=== PATIENT | male | born 1955 ===

== ENCOUNTER 2021-11-07 15:23 | Emergency (ER) | payer MEDICAID | END 2021-11-07 16:13 | disposition home or self-care (01) | LOC: DL.ED 15:23 | DX: S01.111A Laceration without foreign body of right eyelid and periocular area, initial encounter (principal); Z88.5 Allergy status to narcotic agent; Z79.82 Long term (current) use of aspirin; Z79.02 Long term (current) use of antithrombotics/antiplatelets; W22.09XA Striking against other stationary object, initial encounter | CPT/HCPCS: 99282; 99283 ==

== ENCOUNTER 2022-02-16 19:04 | Emergency (ER) | payer MEDICARE, MEDICAID | END 2022-02-16 19:40 | disposition left against medical advice (07) | LOC: DL.ED 19:04 | DX: Z53.21 Procedure and treatment not carried out due to patient leaving prior to being seen by health care provider (principal) ==

== ENCOUNTER 2022-02-17 10:47 | Emergency (ER) | payer MEDICARE, MEDICAID ==
[2022-02-17 12:16] LABS: PTT,PARTIAL THROMBOPLSTIN TIME 22.1 SEC (22.0-34.0)
[2022-02-17 12:22] LABS: ANION GAP 12.4 mEq/L (7-13); CHLORIDE,CL 111 mmol/L (98-107); SODIUM,NA 150 mmol/L (136-145)
[2022-02-17 12:23] LABS: ESTIMATED GFR 86 mL/min (>=60)
[2022-02-17 12:46] LABS: METHAMPHETAMINES,URINE NEGATIVE (NEGATIVE)
[2022-02-17 12:47] LABS: AMPHETAMINES,URINE NEGATIVE (NEGATIVE); BARBITURATES,URINE NEGATIVE (NEGATIVE); BENZODIAZEPINE,URINE NEGATIVE (NEGATIVE); MDMA (ECSTASY), URINE NEGATIVE (NEGATIVE); METHADONE,URINE NEGATIVE (NEGATIVE); OPIATES,URINE NEGATIVE (NEGATIVE); OXYCODONE,URINE NEGATIVE (NEGATIVE); PHENCYCLIDINE,URINE NEGATIVE (NEGATIVE); TCA,URINE NEGATIVE (NEGATIVE)
== END 2022-02-17 13:25 | disposition home or self-care (01) ==
LOC: DL.ED 10:47
DX: F10.920 Alcohol use, unspecified with intoxication, uncomplicated (principal); I25.2 Old myocardial infarction; Z79.899 Other long term (current) drug therapy; Z79.82 Long term (current) use of aspirin; Z88.5 Allergy status to narcotic agent
CPT/HCPCS: 36415; 70450; 72125; 80053; 80305-QW; 80307; 81001; 83605; 84484; 85025; 85610; 85730; 86140; 99284

== ENCOUNTER 2022-02-20 10:09 | Emergency (ER) | payer MEDICARE, MEDICAID ==
[2022-02-20] MEDS ORDERED: Gentamicin 0.3% Ophth Soln 5 ML Bottle ONE (10:51)
[2022-02-20] MEDS ORDERED: Gentamicin 0.3% Ophth Soln 5 ML Bottle EYEBOTH SCH (14:00)
== END 2022-02-20 10:59 | disposition home or self-care (01) ==
LOC: DL.ED 10:09
DX: H10.33 Unspecified acute conjunctivitis, bilateral (principal); S60.511A Abrasion of right hand, initial encounter; L08.9 Local infection of the skin and subcutaneous tissue, unspecified; F10.10 Alcohol abuse, uncomplicated; I10 Essential (primary) hypertension; I25.10 Atherosclerotic heart disease of native coronary artery without angina pectoris; Z88.5 Allergy status to narcotic agent; I25.2 Old myocardial infarction; Z79.82 Long term (current) use of aspirin; Z79.02 Long term (current) use of antithrombotics/antiplatelets; Z79.899 Other long term (current) drug therapy
CPT/HCPCS: 99283; A9270

== ENCOUNTER 2022-02-22 16:53 | Emergency (ER) | payer MEDICARE, MEDICAID ==
[2022-02-22] MEDS ORDERED: Ondansetron 4 MG/2 ML SDV IVPUSH ONE (17:26)
[2022-02-22] MEDS ORDERED: MVI, Adult with Vitamin K 10 ML, Folic Acid 1 MG, Thiamine 100 MG in Lactated Ringers 1... IV ONE ×4 (17:26)
[2022-02-22] MEDS ORDERED: LORazepam 2 MG/ML SDV IVPUSH ONE (17:27)
[2022-02-22 18:04] LABS: ANION GAP 14.5 mEq/L (7-13)
== END 2022-02-22 18:52 | disposition home or self-care (01) ==
LOC: DL.ED 16:53
DX: F10.930 Alcohol use, unspecified with withdrawal, uncomplicated (principal); I25.2 Old myocardial infarction; F17.210 Nicotine dependence, cigarettes, uncomplicated; Z88.5 Allergy status to narcotic agent; Z79.899 Other long term (current) drug therapy; Z79.82 Long term (current) use of aspirin
CPT/HCPCS: 36415; 80053; 80307; 85025; 96365; 96375; 99284; J2060; J2405; J3411; J7120; J3490

== ENCOUNTER 2022-04-03 19:26 | Emergency (ER) | payer MEDICARE, MEDICAID ==
[2022-04-03 20:56] LABS: ANION GAP 15.6 mEq/L (7-13)
== END 2022-04-03 21:12 | disposition left against medical advice (07) ==
LOC: DL.ED 19:26
DX: Z53.21 Procedure and treatment not carried out due to patient leaving prior to being seen by health care provider (principal)
CPT/HCPCS: 36415; 80053; 80143; 80179; 80307; 82150; 83690; 85025

== ENCOUNTER 2022-04-10 22:49 | Emergency (ER) | payer MEDICARE, MEDICAID ==
[2022-04-10] MEDS ORDERED: Aspirin 81 MG Tab.Chew PO ONE (23:07)
[2022-04-10 23:45] LABS: ANION GAP 17.6 mEq/L (7-13)
[2022-04-10] MEDS ORDERED: Iopamidol 755 Mg/ML 100 ML Bottle IVPUSH ONE (23:51)
== END 2022-04-11 01:07 | disposition left against medical advice (07) ==
LOC: DL.ED 22:49
DX: F10.10 Alcohol abuse, uncomplicated (principal); Y90.8 Blood alcohol level of 240 mg/100 ml or more; R07.9 Chest pain, unspecified; E78.00 Pure hypercholesterolemia, unspecified; Z79.899 Other long term (current) drug therapy; Z88.5 Allergy status to narcotic agent
CPT/HCPCS: 36415; 71045; 71260; 80053; 80143; 80179; 80307; 82140; 82150; 83605; 83690; 83735; 84484; 85025; 85379; 87040; 93005; 99285; A9270; Q9967; U0002; 93010; 99284

== ENCOUNTER 2022-04-13 09:04 | Emergency (ER) | payer MEDICARE, MEDICAID ==
[2022-04-13] MEDS ORDERED: Gentamicin 0.3% Ophth Soln 5 ML Bottle EYEBOTH ONE (09:22)
[2022-04-13 10:03] LABS: ANION GAP 13.5 mEq/L (7-13)
[2022-04-13 10:14] LABS: CORONAVIRUS COVID-19 NAA NEGATIVE (NEGATIVE); RESPIRATORY SYNCYTIAL VIR NAA NEGATIVE (NEGATIVE)
== END 2022-04-13 11:04 | disposition other institution (70) ==
LOC: DL.ED 09:04
DX: F10.920 Alcohol use, unspecified with intoxication, uncomplicated (principal); I25.2 Old myocardial infarction; F17.210 Nicotine dependence, cigarettes, uncomplicated; Z20.822 Contact with and (suspected) exposure to COVID-19; Z88.5 Allergy status to narcotic agent; Z79.82 Long term (current) use of aspirin; Z79.899 Other long term (current) drug therapy
CPT/HCPCS: 0241U; 36415; 80053; 80143; 80179; 80307; 83735; 85025; 85610; 99284; A9270

== ENCOUNTER 2022-09-04 11:00 | Emergency (ER) | payer MEDICARE, MEDICAID ==
[2022-09-04] MEDS ORDERED: Sodium Chloride 0.9% 10 ML Syringe FLUSH PRN (13:05)
[2022-09-04] MEDS ORDERED: MVI, Adult with Vitamin K 10 ML, Folic Acid 1 MG, Thiamine 100 MG in Lactated Ringers 1... IV ONE ×4 (13:05)
[2022-09-04] MEDS ORDERED: Ondansetron 4 MG/2 ML SDV IVPUSH ONE (13:06)
[2022-09-04] MEDS ORDERED: LORazepam 2 MG/ML SDV IVPUSH ONE ×2 (13:06→15:46)
[2022-09-04 13:44] LABS: PTT,PARTIAL THROMBOPLSTIN TIME 23.2 SEC (22.0-34.0)
[2022-09-04 14:19] LABS: ANION GAP 17.8 mEq/L (7-13); CHLORIDE,CL 93 mmol/L (98-107); SODIUM,NA 136 mmol/L (136-145)
[2022-09-04 14:20] LABS: ESTIMATED GFR 95 mL/min (>=60)
== END 2022-09-04 16:12 ==
LOC: DL.ED 11:00
DX: F10.930 Alcohol use, unspecified with withdrawal, uncomplicated (principal); E78.00 Pure hypercholesterolemia, unspecified; I25.2 Old myocardial infarction; Z79.82 Long term (current) use of aspirin; Z79.02 Long term (current) use of antithrombotics/antiplatelets; Z88.5 Allergy status to narcotic agent
CPT/HCPCS: 36415; 71045; 80053; 80307; 82150; 83605; 83690; 83735; 83880; 84145; 84484; 85025; 85610; 85730; 86140; 93005; 93010; 96365; 96375; 96376; 99284; 99285-25; A9270-GY; J2060; J2405; J3411; J3490; J7120

== ENCOUNTER 2022-09-13 15:47 | Inpatient (IN) | payer MEDICARE, MEDICAID ==
[2022-09-13] MEDS ORDERED: LORazepam 2 MG/ML SDV IVPUSH ONE (16:09)
[2022-09-13] MEDS ORDERED: MVI, Adult with Vitamin K 10 ML, Thiamine 100 MG, Folic Acid 1 MG in Lactated Ringers 1... IV ONE ×4 (16:09)
[2022-09-13] MEDS ORDERED: Nicotine 21 MG/24 Hr Patch TRDERM ONE (16:10)
[2022-09-13] MEDS: Sodium Chloride 0.9% 10 ML Syringe FLUSH PRN (16:19)
[2022-09-13] MEDS ORDERED: Gentamicin 0.3% Ophth Soln 5 ML Bottle EYEBOTH ONE (16:24)
[2022-09-13 16:28] LABS: ANION GAP 13.2 mEq/L (7-13)
[2022-09-13 16:44] LABS: PTT,PARTIAL THROMBOPLSTIN TIME 22.1 SEC (22.0-34.0)
[2022-09-13] MEDS ORDERED: Albuterol/Ipratropium 3.0-0.5 MG/3 ML Neb Soln NEB PRN (17:39)
[2022-09-13] MEDS ORDERED: Morphine 2 MG/ML SYRINGE IVPUSH PRN (17:39)
[2022-09-13] MEDS ORDERED: Ondansetron 4 MG/2 ML SDV IVPUSH PRN (17:39)
[2022-09-13] MEDS ORDERED: Naproxen 250 MG Tab PO PRN (17:45)
[2022-09-13] MEDS ORDERED: hydrALAZINE 20 MG/ML SDV IVPUSH PRN (17:46)
[2022-09-13] MEDS ORDERED: MVI, Adult with Vitamin K 10 ML, Folic Acid 1 MG, Thiamine 100 MG in Lactated Ringers 1... IV ONE ×4 (17:50)
[2022-09-13] MEDS ORDERED: Nicotine 14 MG/24 Hr Patch TRDERM SCH (18:00)
[2022-09-13] MEDS ORDERED: Ciprofloxacin 0.3% Ophth Soln 5 ML Bottle EYEBOTH SCH (18:00)
[2022-09-13] MEDS ORDERED: Folic Acid 1 MG Tab PO SCH (18:00)
[2022-09-13] MEDS ORDERED: LORazepam 2 MG/ML SDV IVPUSH PRN (18:00)
[2022-09-13] MEDS ORDERED: Tamsulosin 0.4 MG Cap.ER PO SCH (18:00)
[2022-09-13] MEDS: LORazepam 2 MG/ML SDV IVPUSH PRN (18:30)
[2022-09-13] MEDS: Lactated Ringers 1,000 ML IV SCH (18:31)
[2022-09-13] MEDS: Isosorbide Mononitrate 30 MG Tab.ER PO SCH (18:31)
[2022-09-13] MEDS: Multivitamin Tab PO SCH (18:40)
[2022-09-13] MEDS: Thiamine 200 MG/2 ML MDV IM SCH (18:41)
[2022-09-13] MEDS: Carvedilol 3.125 MG Tab PO SCH (18:46)
[2022-09-13] MEDS ORDERED: DOXEPIN HCL 6 MG PO SCH (21:00)
[2022-09-13] MEDS: chlordiazePOXIDE 10 MG Cap PO SCH (21:55)
[2022-09-13] MEDS: Gentamicin 0.3% Ophth Soln 5 ML Bottle EYEBOTH SCH (21:55)
[2022-09-13] MEDS: Tamsulosin 0.4 MG Cap.ER PO SCH (21:55)
[2022-09-13] MEDS: Pantoprazole 40 MG Tab.CR PO SCH (21:55)
[2022-09-13] MEDS: traMADol 50 MG Tab PO PRN (22:06)
[2022-09-13] MEDS: Melatonin 3 MG Tab PO PRN (22:08)
[2022-09-13 22:50] LABS: AMPHETAMINES,URINE NEGATIVE (NEGATIVE); BARBITURATES,URINE NEGATIVE (NEGATIVE); BENZODIAZEPINE,URINE POSITIVE (NEGATIVE); MDMA (ECSTASY), URINE NEGATIVE (NEGATIVE); METHADONE,URINE NEGATIVE (NEGATIVE); METHAMPHETAMINES,URINE NEGATIVE (NEGATIVE); OPIATES,URINE NEGATIVE (NEGATIVE); OXYCODONE,URINE NEGATIVE (NEGATIVE); PHENCYCLIDINE,URINE NEGATIVE (NEGATIVE); TCA,URINE NEGATIVE (NEGATIVE)
[2022-09-14] MEDS: Lactated Ringers 1,000 ML IV SCH (01:55)
[2022-09-14] MEDS: chlordiazePOXIDE 10 MG Cap PO SCH ×3 (05:36→22:21)
[2022-09-14] MEDS: LORazepam 2 MG/ML SDV IVPUSH PRN (05:37)
[2022-09-14] MEDS: Sodium Chloride 0.9% 10 ML Syringe FLUSH PRN (05:38)
[2022-09-14 06:48] LABS: ANION GAP 9.9 mEq/L (7-13)
[2022-09-14] MEDS: Carvedilol 3.125 MG Tab PO SCH ×2 (08:18→17:43)
[2022-09-14] MEDS ORDERED: MVI, Adult with Vitamin K 10 ML, Folic Acid 1 MG, Thiamine 100 MG in Lactated Ringers 1... IV ONE ×4 (09:00)
[2022-09-14] MEDS ORDERED: Remove Patch NICOTINE PATCH TRDERM SCH (09:00)
[2022-09-14] MEDS: Enoxaparin 40 MG/0.4 ML Syringe SUBCUT SCH (09:27)
[2022-09-14] MEDS: Thiamine 200 MG/2 ML MDV IM SCH (09:31)
[2022-09-14] MEDS: Nicotine 14 MG/24 Hr Patch TRDERM SCH (09:36)
[2022-09-14] MEDS: Gentamicin 0.3% Ophth Soln 5 ML Bottle EYEBOTH SCH ×3 (09:40→20:21)
[2022-09-14] MEDS: Multivitamin Tab PO SCH (09:42)
[2022-09-14] MEDS: Clopidogrel 75 MG Tab PO SCH (09:42)
[2022-09-14] MEDS: Folic Acid 1 MG Tab PO SCH (09:43)
[2022-09-14] MEDS: Isosorbide Mononitrate 30 MG Tab.ER PO SCH (09:44)
[2022-09-14] MEDS: Aspirin 81 MG Tab.EC PO SCH (09:44)
[2022-09-14] MEDS: Remove Patch NICOTINE PATCH TRDERM SCH (09:45)
[2022-09-14] MEDS ORDERED: LORazepam 1 MG Tab PO PRN (09:59)
[2022-09-14] MEDS: LORazepam 0.5 MG Tab PO PRN (11:44)
[2022-09-14] MEDS: Menthol 10%/Methyl Salicylate 15% 85 GM Tube TOP SCH ×2 (11:46→20:20)
[2022-09-14] MEDS: LORazepam 2 MG/ML SDV IV PRN ×3 (13:46→22:19)
[2022-09-14] MEDS: traMADol 50 MG Tab PO PRN (20:17)
[2022-09-14] MEDS: Tamsulosin 0.4 MG Cap.ER PO SCH (20:19)
[2022-09-14] MEDS: Pantoprazole 40 MG Tab.CR PO SCH (20:20)
[2022-09-15] MEDS: LORazepam 2 MG/ML SDV IV PRN (02:15)
[2022-09-15] MEDS: LORazepam 0.5 MG Tab PO PRN ×2 (06:01→10:28)
[2022-09-15] MEDS: chlordiazePOXIDE 10 MG Cap PO SCH ×3 (06:01→21:51)
[2022-09-15 06:05] LABS: ANION GAP 12.9 mEq/L (7-13)
[2022-09-15] MEDS: Nicotine 14 MG/24 Hr Patch TRDERM SCH (08:51)
[2022-09-15] MEDS: Enoxaparin 40 MG/0.4 ML Syringe SUBCUT SCH (08:51)
[2022-09-15] MEDS: Isosorbide Mononitrate 30 MG Tab.ER PO SCH (08:52)
[2022-09-15] MEDS: Multivitamin Tab PO SCH (08:52)
[2022-09-15] MEDS: Carvedilol 3.125 MG Tab PO SCH ×2 (08:52→18:47)
[2022-09-15] MEDS: Folic Acid 1 MG Tab PO SCH (08:52)
[2022-09-15] MEDS: Clopidogrel 75 MG Tab PO SCH (08:52)
[2022-09-15] MEDS: Aspirin 81 MG Tab.EC PO SCH (08:52)
[2022-09-15] MEDS: Thiamine 200 MG/2 ML MDV IM SCH (08:53)
[2022-09-15] MEDS: Gentamicin 0.3% Ophth Soln 5 ML Bottle EYEBOTH SCH ×3 (08:54→21:53)
[2022-09-15] MEDS: Menthol 10%/Methyl Salicylate 15% 85 GM Tube TOP SCH ×2 (09:29→21:52)
[2022-09-15] MEDS: Remove Patch NICOTINE PATCH TRDERM SCH (12:41)
[2022-09-15] MEDS: traMADol 50 MG Tab PO PRN ×2 (15:33→23:25)
[2022-09-15] MEDS: Pantoprazole 40 MG Tab.CR PO SCH (21:52)
[2022-09-15] MEDS: Tamsulosin 0.4 MG Cap.ER PO SCH (21:52)
[2022-09-15] MEDS: Melatonin 3 MG Tab PO PRN (21:52)
[2022-09-16] MEDS: chlordiazePOXIDE 10 MG Cap PO SCH ×3 (05:54→21:29)
[2022-09-16 06:48] LABS: ANION GAP 10.9 mEq/L (7-13)
[2022-09-16] MEDS: Remove Patch NICOTINE PATCH TRDERM SCH (08:02)
[2022-09-16] MEDS: Nicotine 14 MG/24 Hr Patch TRDERM SCH (08:02)
[2022-09-16] MEDS: Thiamine 200 MG/2 ML MDV IM SCH (08:03)
[2022-09-16] MEDS: Isosorbide Mononitrate 30 MG Tab.ER PO SCH (08:04)
[2022-09-16] MEDS: Enoxaparin 40 MG/0.4 ML Syringe SUBCUT SCH (08:04)
[2022-09-16] MEDS: Carvedilol 3.125 MG Tab PO SCH ×2 (08:04→17:14)
[2022-09-16] MEDS: Aspirin 81 MG Tab.EC PO SCH (08:04)
[2022-09-16] MEDS: Multivitamin Tab PO SCH (08:05)
[2022-09-16] MEDS: Gentamicin 0.3% Ophth Soln 5 ML Bottle EYEBOTH SCH ×3 (08:05→21:31)
[2022-09-16] MEDS: Folic Acid 1 MG Tab PO SCH (08:05)
[2022-09-16] MEDS: Clopidogrel 75 MG Tab PO SCH (08:05)
[2022-09-16] MEDS: Menthol 10%/Methyl Salicylate 15% 85 GM Tube TOP SCH (11:01)
[2022-09-16] MEDS: traMADol 50 MG Tab PO PRN (15:21)
[2022-09-16] MEDS ORDERED: Menthol 10%/Methyl Salicylate 15% 85 GM Tube TOP PRN (18:26)
[2022-09-16] MEDS: Tamsulosin 0.4 MG Cap.ER PO SCH (21:28)
[2022-09-16] MEDS: Acetaminophen/HYDROcodone 325-5 MG Tab PO PRN (21:29)
[2022-09-16] MEDS: Melatonin 3 MG Tab PO PRN (21:29)
[2022-09-16] MEDS: Pantoprazole 40 MG Tab.CR PO SCH (21:29)
[2022-09-17] MEDS: chlordiazePOXIDE 10 MG Cap PO SCH ×3 (05:29→21:43)
[2022-09-17] MEDS: Nicotine 14 MG/24 Hr Patch TRDERM SCH (09:20)
[2022-09-17] MEDS: Enoxaparin 40 MG/0.4 ML Syringe SUBCUT SCH (09:21)
[2022-09-17] MEDS: Thiamine 200 MG/2 ML MDV IM SCH (09:21)
[2022-09-17] MEDS: Isosorbide Mononitrate 30 MG Tab.ER PO SCH (09:26)
[2022-09-17] MEDS: Remove Patch NICOTINE PATCH TRDERM SCH (09:27)
[2022-09-17] MEDS: Carvedilol 3.125 MG Tab PO SCH ×2 (09:27→17:58)
[2022-09-17] MEDS: Aspirin 81 MG Tab.EC PO SCH (09:27)
[2022-09-17] MEDS: Multivitamin Tab PO SCH (09:27)
[2022-09-17] MEDS: Clopidogrel 75 MG Tab PO SCH (09:27)
[2022-09-17] MEDS: Gentamicin 0.3% Ophth Soln 5 ML Bottle EYEBOTH SCH ×3 (09:28→21:46)
[2022-09-17] MEDS: Acetaminophen/HYDROcodone 325-5 MG Tab PO PRN ×3 (09:31→21:43)
[2022-09-17] MEDS: Pantoprazole 40 MG Tab.CR PO SCH (21:43)
[2022-09-17] MEDS: Gabapentin 100 MG Cap PO SCH (21:44)
[2022-09-17] MEDS: Tamsulosin 0.4 MG Cap.ER PO SCH (21:44)
[2022-09-18] MEDS: Gabapentin 100 MG Cap PO SCH ×2 (05:53→14:49)
[2022-09-18] MEDS: chlordiazePOXIDE 10 MG Cap PO SCH ×2 (05:53→14:49)
[2022-09-18] MEDS: Isosorbide Mononitrate 30 MG Tab.ER PO SCH (08:59)
[2022-09-18] MEDS: Thiamine 200 MG/2 ML MDV IM SCH (08:59)
[2022-09-18] MEDS: Multivitamin Tab PO SCH (08:59)
[2022-09-18] MEDS: Carvedilol 3.125 MG Tab PO SCH (09:00)
[2022-09-18] MEDS: Aspirin 81 MG Tab.EC PO SCH (09:00)
[2022-09-18] MEDS: Clopidogrel 75 MG Tab PO SCH (09:00)
[2022-09-18] MEDS: Enoxaparin 40 MG/0.4 ML Syringe SUBCUT SCH (09:00)
[2022-09-18] MEDS: Nicotine 14 MG/24 Hr Patch TRDERM SCH (09:01)
[2022-09-18] MEDS: Acetaminophen/HYDROcodone 325-5 MG Tab PO PRN ×2 (09:03→12:35)
[2022-09-18] MEDS: Gentamicin 0.3% Ophth Soln 5 ML Bottle EYEBOTH SCH ×2 (09:03→14:49)
[2022-09-18] MEDS: Remove Patch NICOTINE PATCH TRDERM SCH (09:06)
== END 2022-09-18 13:00 | disposition home or self-care (01) | DRG 897 ==
LOC: DL.ED 15:47 → DL.MS 17:15
PROVIDERS: ADMIT Internal Medicine; ATTEND Internal Medicine
DX: F10.920 Alcohol use, unspecified with intoxication, uncomplicated (principal); F10.229 Alcohol dependence with intoxication, unspecified; F17.200 Nicotine dependence, unspecified, uncomplicated; Z20.822 Contact with and (suspected) exposure to COVID-19; E78.00 Pure hypercholesterolemia, unspecified; Y90.8 Blood alcohol level of 240 mg/100 ml or more; I10 Essential (primary) hypertension; F17.210 Nicotine dependence, cigarettes, uncomplicated; H10.9 Unspecified conjunctivitis; E86.0 Dehydration; F12.10 Cannabis abuse, uncomplicated; M25.511 Pain in right shoulder; M25.521 Pain in right elbow; Z88.5 Allergy status to narcotic agent; Z79.82 Long term (current) use of aspirin; Z79.899 Other long term (current) drug therapy; I25.2 Old myocardial infarction
CPT/HCPCS: 36415; 73020-RT; 73070-RT; 80053; 80305-QW; 80307; 81003; 82140; 83735; 84100; 85025; 85610; 85730; 96365; 96375; 99283; 99285-25; A9270-GY; J1650; J2060; J3411; J3490; J7120; U0002

== ENCOUNTER 2022-11-22 09:14 | Inpatient (IN) | payer MEDICARE, MEDICAID ==
[2022-11-22] MEDS ORDERED: MVI, Adult with Vitamin K 10 ML, Folic Acid 1 MG, Thiamine 100 MG in Lactated Ringers 1... IV ONE ×4 (09:54)
[2022-11-22 10:20] LABS: ANION GAP 12.8 mEq/L (7-13)
[2022-11-22] MEDS: Sodium Chloride 0.9% 10 ML Syringe FLUSH PRN ×2 (10:23→11:04)
[2022-11-22] MEDS ORDERED: Azithromycin 500 MG in Sodium Chloride 0.9% 250 ML IV ONE (10:38)
[2022-11-22] MEDS ORDERED: cefTRIAXone 2 GM Vial IVPUSH ONE (10:38)
[2022-11-22] MEDS ORDERED: Albuterol/Ipratropium 3.0-0.5 MG/3 ML Neb Soln NEB PRN (11:51)
[2022-11-22] MEDS ORDERED: Ketorolac 30 MG/ML SDV IVPUSH PRN (11:51)
[2022-11-22] MEDS ORDERED: Magnesium Hydroxide 400 MG/5 ML Susp 30 ML Cup PO PRN (11:51)
[2022-11-22] MEDS ORDERED: Polyethylene Glycol 3350 Powder 17 GM Packet PO PRN (11:51)
[2022-11-22] MEDS ORDERED: Ondansetron 4 MG/2 ML SDV IVPUSH PRN (11:51)
[2022-11-22] MEDS ORDERED: HYDROmorphone 0.5 MG/0.5 ML Syringe IVPUSH PRN (11:51)
[2022-11-22] MEDS ORDERED: guaiFENesin/Dextromethorphan 100-10 MG/5 ML Soln 5 ML Cup PO PRN (11:53)
[2022-11-22] MEDS ORDERED: LORazepam 2 MG/ML SDV IV PRN (11:54)
[2022-11-22] MEDS ORDERED: cloNIDine 0.1 MG Tab PO PRN (11:54)
[2022-11-22] MEDS ORDERED: chlordiazePOXIDE 25 MG Cap PO SCH (12:00)
[2022-11-22] MEDS ORDERED: guaiFENesin 600 MG Tab.ER PO ONE (12:30)
[2022-11-22] MEDS: Piperacillin/Tazobactam 3.375 GM in Sodium Chloride 0.9% 100 ML IV SCH ×2 (13:50→18:52)
[2022-11-22] MEDS: Nicotine 14 MG/24 Hr Patch TRDERM SCH (15:42)
[2022-11-22] MEDS: Saccharomyces Boulardii (Probiotic) 250 MG Cap PO SCH (20:37)
[2022-11-22] MEDS: Famotidine 20 MG Tab PO SCH (20:37)
[2022-11-22] MEDS: LORazepam 0.5 MG Tab PO PRN (20:37)
[2022-11-22] MEDS: Topiramate 25 MG Tab PO SCH (20:37)
[2022-11-22] MEDS: guaiFENesin 600 MG Tab.ER PO SCH (20:37)
[2022-11-22] MEDS ORDERED: QUEtiapine 25 MG Tab PO SCH (21:00)
[2022-11-23] MEDS: Piperacillin/Tazobactam 3.375 GM in Sodium Chloride 0.9% 100 ML IV SCH ×4 (02:51→17:50)
[2022-11-23] MEDS: LORazepam 0.5 MG Tab PO PRN ×8 (03:15→22:45)
[2022-11-23 07:06] LABS: ANION GAP 12.8 mEq/L (7-13)
[2022-11-23] MEDS: Nicotine 14 MG/24 Hr Patch TRDERM SCH (08:30)
[2022-11-23] MEDS: Folic Acid 1 MG Tab PO SCH (08:33)
[2022-11-23] MEDS: Topiramate 25 MG Tab PO SCH ×2 (08:33→20:04)
[2022-11-23] MEDS: Famotidine 20 MG Tab PO SCH ×2 (08:33→20:04)
[2022-11-23] MEDS: Thiamine 100 MG Tab PO SCH (08:33)
[2022-11-23] MEDS: Saccharomyces Boulardii (Probiotic) 250 MG Cap PO SCH ×2 (08:33→20:04)
[2022-11-23] MEDS: guaiFENesin 600 MG Tab.ER PO SCH ×2 (08:34→20:06)
[2022-11-23] MEDS: Multivitamin Tab PO SCH (08:34)
[2022-11-23] MEDS: Ibuprofen 600 MG Tab PO PRN ×2 (08:42→18:34)
[2022-11-23] MEDS ORDERED: Magnesium Sulfate/Water 2 GM in Premix Bag 1 BAG IV ONE (09:30)
[2022-11-23] MEDS: QUEtiapine 25 MG Tab PO SCH (20:55)
[2022-11-23] MEDS: Melatonin 3 MG Tab PO SCH (20:55)
[2022-11-24] MEDS: Piperacillin/Tazobactam 3.375 GM in Sodium Chloride 0.9% 100 ML IV SCH ×5 (00:23→23:59)
[2022-11-24] MEDS: LORazepam 0.5 MG Tab PO PRN ×4 (01:10→23:59)
[2022-11-24] MEDS: Sodium Chloride 0.9% 10 ML Syringe FLUSH PRN (05:01)
[2022-11-24 06:38] LABS: ANION GAP 11.2 mEq/L (7-13)
[2022-11-24] MEDS ORDERED: Potassium Chloride 10 MEQ Tab.ER PO ONE (08:30)
[2022-11-24] MEDS: Saccharomyces Boulardii (Probiotic) 250 MG Cap PO SCH ×2 (09:52→20:21)
[2022-11-24] MEDS: Nicotine 14 MG/24 Hr Patch TRDERM SCH (09:52)
[2022-11-24] MEDS: Famotidine 20 MG Tab PO SCH ×2 (09:53→20:21)
[2022-11-24] MEDS: Multivitamin Tab PO SCH (09:53)
[2022-11-24] MEDS: Topiramate 25 MG Tab PO SCH ×2 (09:53→20:21)
[2022-11-24] MEDS: Folic Acid 1 MG Tab PO SCH (09:53)
[2022-11-24] MEDS: Thiamine 100 MG Tab PO SCH (09:53)
[2022-11-24] MEDS: guaiFENesin 600 MG Tab.ER PO SCH ×2 (09:54→20:21)
[2022-11-24] MEDS: Melatonin 3 MG Tab PO SCH (20:20)
[2022-11-24] MEDS: QUEtiapine 25 MG Tab PO SCH (20:20)
[2022-11-25] MEDS: Piperacillin/Tazobactam 3.375 GM in Sodium Chloride 0.9% 100 ML IV SCH (05:27)
[2022-11-25 06:03] LABS: ANION GAP 14.1 mEq/L (7-13)
[2022-11-25] MEDS: Nicotine 14 MG/24 Hr Patch TRDERM SCH ×2 (07:49→08:19)
[2022-11-25] MEDS: guaiFENesin 600 MG Tab.ER PO SCH ×2 (07:49→08:19)
[2022-11-25] MEDS: Famotidine 20 MG Tab PO SCH ×2 (07:50→08:20)
[2022-11-25] MEDS: Thiamine 100 MG Tab PO SCH ×2 (07:50→08:20)
[2022-11-25] MEDS: Saccharomyces Boulardii (Probiotic) 250 MG Cap PO SCH ×2 (07:50→08:19)
[2022-11-25] MEDS: Topiramate 25 MG Tab PO SCH ×2 (07:50→08:20)
[2022-11-25] MEDS: Multivitamin Tab PO SCH ×2 (07:50→08:20)
[2022-11-25] MEDS: Folic Acid 1 MG Tab PO SCH ×2 (07:51→08:19)
== END 2022-11-25 09:45 | disposition home or self-care (01) | DRG 896 ==
LOC: DL.ED 09:14 → UNDOADMIN 11:04 → DL.MS 11:04 → DL.ED 11:36 → UNDODISIN 11-25 09:45
PROVIDERS: ADMIT Internal Medicine; ATTEND Internal Medicine
DX: F10.229 Alcohol dependence with intoxication, unspecified (principal); J69.0 Pneumonitis due to inhalation of food and vomit; E87.1 Hypo-osmolality and hyponatremia; E78.5 Hyperlipidemia, unspecified; I25.10 Atherosclerotic heart disease of native coronary artery without angina pectoris; I50.9 Heart failure, unspecified; I11.0 Hypertensive heart disease with heart failure; H40.9 Unspecified glaucoma; N40.0 Benign prostatic hyperplasia without lower urinary tract symptoms; F15.10 Other stimulant abuse, uncomplicated; F17.210 Nicotine dependence, cigarettes, uncomplicated; Y90.8 Blood alcohol level of 240 mg/100 ml or more; G47.00 Insomnia, unspecified; E83.42 Hypomagnesemia; E87.6 Hypokalemia; E78.00 Pure hypercholesterolemia, unspecified; D69.6 Thrombocytopenia, unspecified; E88.09 Other disorders of plasma-protein metabolism, not elsewhere classified; E87.8 Other disorders of electrolyte and fluid balance, not elsewhere classified; Z79.82 Long term (current) use of aspirin; I25.2 Old myocardial infarction; Z88.5 Allergy status to narcotic agent; Z79.02 Long term (current) use of antithrombotics/antiplatelets; Z95.5 Presence of coronary angioplasty implant and graft; Z79.899 Other long term (current) drug therapy
CPT/HCPCS: 36415; 71045; 80053; 80307; 83605; 83735; 84443; 84484; 85025; 87040; 93005; 93010; 96365; 96375; 99285; 99285-25; A9270-GY; J0456; J0696; J1885; J2060; J2543; J3411; J3475; J3490; J7050; J7120

== ENCOUNTER 2022-12-01 19:01 | Emergency (ER) | payer MEDICARE, MEDICAID | END 2022-12-01 22:30 | disposition left against medical advice (07) | LOC: DL.ED 19:01 | DX: Z53.21 Procedure and treatment not carried out due to patient leaving prior to being seen by health care provider (principal) ==

== ENCOUNTER 2022-12-19 10:40 | Inpatient (IN) | payer MEDICARE, MEDICAID ==
[2022-12-19 11:04] LABS: HEMATOCRIT 38.1 % (40.0-54.0); HEMOGLOBIN 12.9 g/dL (14.0-18.0); MEAN CORPUSCULAR HEMOGLOBIN 34.4 pg (27.0-34.0); MEAN CORPUSCULAR HGB CONC 33.9 g/dL (33.0-35.0); MEAN CORPUSCULAR VOLUME 101.6 fL (80-100); PLATELET COUNT,PLT 239 10^3/uL (150-450); RED BLOOD CELL COUNT 3.75 10^6/uL (4.6-6.2); WHITE BLOOD CELL COUNT,WBC 22.1 10^3/uL (5.0-10.0)
[2022-12-19 11:10] LABS: BASOPHILS PERCENT AUTO 0.1 % (0.0-1.0); LYMPHOCYTES PERCENT AUTO 10.9 % (20.5-50.1); MONOCYTES PERCENT AUTO 9.9 % (2-8); NEUTROPHILS PERCENT AUTO 79.1 % (42.2-75.2)
[2022-12-19] MEDS ORDERED: Sodium Chloride 0.9% 1,000 ML IV ONE ×2 (11:15→11:43)
[2022-12-19 11:18] LABS: PROTHROMBIN TIME 10.1 SEC (9.0-12.0)
[2022-12-19] MEDS: Sodium Chloride 0.9% 10 ML Syringe FLUSH PRN (11:20)
[2022-12-19 11:29] LABS: LACTIC ACID 5.3 mmol/L (0.4-2.0)
[2022-12-19 11:32] LABS: ALANINE AMINOTRANSFERASE,ALT 26 U/L (16-63); ALBUMIN 2.8 g/dL (3.4-5.0); ALKALINE PHOSPHATASE 100 U/L (46-116); ANION GAP 12.8 mEq/L (7-13); ASPARTATE AMNIOTRANSFERASE,AST 25 U/L (15-37); BILIRUBIN TOTAL 0.9 mg/dL (0.2-1.0); BLOOD UREA NITROGEN,BUN 13 mg/dL (7-18); BUN/CREATININE RATIO 7.6 (No establ ref range); C-REACTIVE PROTEIN 1.2 mg/dL (0.0-0.9); CALCIUM 8.1 mg/dL (8.5-10.1); CARBON DIOXIDE,CO2 30 mmol/L (21-32); CHLORIDE,CL 99 mmol/L (98-107); CREATININE 1.71 mg/dL (0.70-1.30); GLUCOSE RANDOM 279 mg/dL (70-99); MAGNESIUM 1.4 mg/dL (1.8-2.4); POTASSIUM,K 4.8 mmol/L (3.5-5.1); PROTEIN TOTAL,TP 6.5 g/dL (6.4-8.2); SODIUM,NA 137 mmol/L (136-145); TSH ULTRASENSITIVE 1.09 uIU/mL (0.36-3.74)
[2022-12-19 11:34] LABS: A/G RATIO 0.76; ESTIMATED GFR 43 mL/min (>=60)
[2022-12-19 11:52] LABS: BAND PERCENT MAN 1 %; LYMPHOCYTES PERCENT MAN 7 % (20-50); MONOCYTES PERCENT MAN 5 % (2-8); SEG NEUTROPHILS PERCENT MAN 87 % (42-75)
[2022-12-19] MEDS ORDERED: Magnesium Sulfate/Water 2 GM in Premix Bag 1 BAG IV ONE (11:53)
[2022-12-19] MEDS ORDERED: Ondansetron 4 MG/2 ML SDV IVPUSH ONE (12:24)
[2022-12-19] MEDS ORDERED: HYDROmorphone 0.5 MG/0.5 ML Syringe IVPUSH ONE ×2 (12:24→13:03)
[2022-12-19] MEDS ORDERED: Acetaminophen 500 MG Tab PO ONE (13:01)
[2022-12-19 13:25] LABS: APPEARANCE,URINE CLEAR (CLEAR); BILIRUBIN,URINE SMALL (NEGATIVE); COLOR,URINE YELLOW (YELLOW); GLUCOSE,URINE 500 (NEGATIVE); KETONES,URINE TRACE (NEGATIVE); LEUKOCYTE ESTERASE,URINE NEGATIVE (NEGATIVE); NITRITE,URINE NEGATIVE (NEGATIVE); OCCULT BLOOD,URINE NEGATIVE (NEGATIVE); PROTEIN,URINE 100 (NEGATIVE)
[2022-12-19 13:27] LABS: RBC,URINE 0-5 /HPF (0-5); WBC,URINE 0-5 /HPF (0-5/HPF)
[2022-12-19 13:28] LABS: AMORPHOUS SEDIMENT,URINE FEW /HPF (NOT SEEN); AMPHETAMINES,URINE NEGATIVE (NEGATIVE); BACTERIA,URINE MODERATE /HPF (0-FEW/HPF); BARBITURATES,URINE NEGATIVE (NEGATIVE); BENZODIAZEPINE,URINE NEGATIVE (NEGATIVE); EPITHELIAL CELLS,URINE MODERATE /HPF (NOT SEEN); MDMA (ECSTASY), URINE NEGATIVE (NEGATIVE); METHADONE,URINE NEGATIVE (NEGATIVE); METHAMPHETAMINES,URINE NEGATIVE (NEGATIVE); MUCUS,URINE MODERATE /LPF (NOT SEEN); OPIATES,URINE NEGATIVE (NEGATIVE); OXYCODONE,URINE POSITIVE (NEGATIVE); PHENCYCLIDINE,URINE NEGATIVE (NEGATIVE); TCA,URINE NEGATIVE (NEGATIVE)
[2022-12-19] MEDS ORDERED: Albuterol/Ipratropium 3.0-0.5 MG/3 ML Neb Soln NEB PRN (17:01)
[2022-12-19] MEDS ORDERED: Haloperidol Lactate 5 MG/ML SDV IM PRN (17:01)
[2022-12-19] MEDS ORDERED: cloNIDine 0.1 MG Tab PO PRN (17:01)
[2022-12-19] MEDS ORDERED: Ondansetron 4 MG/2 ML SDV IVPUSH PRN (17:01)
[2022-12-19] MEDS ORDERED: HYDROmorphone 0.5 MG/0.5 ML Syringe IVPUSH PRN (17:01)
[2022-12-19] MEDS ORDERED: Magnesium Hydroxide 400 MG/5 ML Susp 30 ML Cup PO PRN (17:01)
[2022-12-19] MEDS ORDERED: Acetaminophen 325 MG Tab PO PRN (17:01)
[2022-12-19] MEDS ORDERED: MVI, Adult with Vitamin K 10 ML, Folic Acid 1 MG, Thiamine 100 MG in Lactated Ringers 1... IV ONE ×4 (17:01)
[2022-12-19] MEDS ORDERED: NALTREXONE MICROSPHERES 380 MG IM SCH (17:15)
[2022-12-19] MEDS: Ketorolac 30 MG/ML SDV IVPUSH PRN (18:11)
[2022-12-19] MEDS ORDERED: Carvedilol 3.125 MG Tab PO SCH (21:00)
[2022-12-19] MEDS: Tamsulosin 0.4 MG Cap.ER PO SCH (22:14)
[2022-12-19] MEDS: atorvaSTATin 20 MG Tab PO SCH (22:14)
[2022-12-19] MEDS: Mirtazapine 15 MG Tab PO SCH (22:15)
[2022-12-19] MEDS: hydrOXYzine HCl 25 MG Tab PO SCH (22:15)
[2022-12-19] MEDS: Melatonin 3 MG Tab PO SCH (22:16)
[2022-12-19] MEDS: Polyvinyl Alcohol 1.4% Ophth Soln 15 ML Bottle EYEBOTH PRN (22:20)
[2022-12-19] MEDS: Latanoprost 0.005% Ophth Soln 2.5 ML Bottle EYEBOTH SCH (22:36)
[2022-12-20] MEDS: Ketorolac 30 MG/ML SDV IVPUSH PRN (03:57)
[2022-12-20] MEDS: Polyvinyl Alcohol 1.4% Ophth Soln 15 ML Bottle EYEBOTH PRN (04:55)
[2022-12-20] MEDS: Pantoprazole 40 MG Tab.CR PO SCH ×2 (04:58→05:13)
[2022-12-20 06:23] LABS: HEMATOCRIT 25.9 % (40.0-54.0); HEMOGLOBIN 8.7 g/dL (14.0-18.0); MEAN CORPUSCULAR HEMOGLOBIN 34.7 pg (27.0-34.0); MEAN CORPUSCULAR HGB CONC 33.6 g/dL (33.0-35.0); MEAN CORPUSCULAR VOLUME 103.2 fL (80-100); PLATELET COUNT,PLT 189 10^3/uL (150-450); RED BLOOD CELL COUNT 2.51 10^6/uL (4.6-6.2); WHITE BLOOD CELL COUNT,WBC 14.5 10^3/uL (5.0-10.0)
[2022-12-20 06:47] LABS: BASOPHILS PERCENT AUTO 0.1 % (0.0-1.0); EOSINOPHILS PERCENT AUTO 0.6 % (1.0-3.0); LYMPHOCYTES PERCENT AUTO 16.9 % (20.5-50.1); MONOCYTES PERCENT AUTO 10.9 % (2-8); NEUTROPHILS PERCENT AUTO 71.5 % (42.2-75.2)
[2022-12-20 06:51] LABS: A/G RATIO 0.75; ALBUMIN 2.1 g/dL (3.4-5.0); ANION GAP 10.8 mEq/L (7-13); BILIRUBIN TOTAL 0.7 mg/dL (0.2-1.0); BUN/CREATININE RATIO 13.4 (No establ ref range); CALCIUM 7.8 mg/dL (8.5-10.1); CREATININE 0.97 mg/dL (0.70-1.30); EST CRCL DRUG DOSING (CG) 73.9 mL/min; MAGNESIUM 1.8 mg/dL (1.8-2.4); POTASSIUM,K 3.8 mmol/L (3.5-5.1); PROTEIN TOTAL,TP 4.9 g/dL (6.4-8.2)
[2022-12-20 07:23] LABS: BAND PERCENT MAN 4 %; LYMPHOCYTES PERCENT MAN 17 % (20-50); MONOCYTES PERCENT MAN 5 % (2-8); SEG NEUTROPHILS PERCENT MAN 74 % (42-75)
[2022-12-20] MEDS: Thiamine 100 MG Tab PO SCH (08:36)
[2022-12-20] MEDS: Clopidogrel 75 MG Tab PO SCH (08:36)
[2022-12-20] MEDS: Aspirin 81 MG Tab.EC PO SCH (08:37)
[2022-12-20] MEDS: Isosorbide Mononitrate 30 MG Tab.ER PO SCH (08:37)
[2022-12-20] MEDS: Folic Acid 1 MG Tab PO SCH (08:37)
[2022-12-20] MEDS: Carvedilol 3.125 MG Tab PO SCH ×2 (08:43→17:18)
[2022-12-20] MEDS ORDERED: Multivitamin Tab PO SCH (09:00)
[2022-12-20] MEDS: Multivitamin Tab PO SCH (09:44)
[2022-12-20] MEDS: LORazepam 2 MG/ML SDV IV PRN ×3 (09:59→22:16)
[2022-12-20] MEDS: Sodium Chloride 0.9% 10 ML Syringe FLUSH PRN ×4 (19:37→23:11)
[2022-12-20] MEDS: hydrOXYzine HCl 25 MG Tab PO SCH (20:32)
[2022-12-20] MEDS: atorvaSTATin 20 MG Tab PO SCH (20:33)
[2022-12-20] MEDS: Melatonin 3 MG Tab PO SCH (20:33)
[2022-12-20] MEDS: Mirtazapine 15 MG Tab PO SCH (20:33)
[2022-12-20] MEDS: Tamsulosin 0.4 MG Cap.ER PO SCH (20:37)
[2022-12-20] MEDS: Latanoprost 0.005% Ophth Soln 2.5 ML Bottle EYEBOTH SCH (20:38)
[2022-12-21] MEDS: Ketorolac 30 MG/ML SDV IVPUSH PRN (00:12)
[2022-12-21] MEDS: Sodium Chloride 0.9% 10 ML Syringe FLUSH PRN ×5 (00:13→20:08)
[2022-12-21] MEDS: LORazepam 2 MG/ML SDV IV PRN ×5 (00:20→18:41)
[2022-12-21] MEDS: Pantoprazole 40 MG Tab.CR PO SCH (06:00)
[2022-12-21] MEDS: Folic Acid 1 MG Tab PO SCH (09:11)
[2022-12-21] MEDS: Isosorbide Mononitrate 30 MG Tab.ER PO SCH (09:11)
[2022-12-21] MEDS: Aspirin 81 MG Tab.EC PO SCH (09:12)
[2022-12-21] MEDS: Multivitamin Tab PO SCH (09:12)
[2022-12-21] MEDS: Thiamine 100 MG Tab PO SCH (09:12)
[2022-12-21] MEDS: Clopidogrel 75 MG Tab PO SCH (09:12)
[2022-12-21] MEDS: Carvedilol 3.125 MG Tab PO SCH ×2 (10:13→21:38)
[2022-12-21] MEDS: Nicotine 21 MG/24 Hr Patch TRDERM SCH (13:34)
[2022-12-21] MEDS: atorvaSTATin 20 MG Tab PO SCH (20:05)
[2022-12-21] MEDS: LORazepam 0.5 MG Tab PO PRN ×2 (20:06→23:43)
[2022-12-21] MEDS: Tamsulosin 0.4 MG Cap.ER PO SCH (20:07)
[2022-12-21] MEDS: Latanoprost 0.005% Ophth Soln 2.5 ML Bottle EYEBOTH SCH (20:10)
[2022-12-21] MEDS ORDERED: Ziprasidone Mesylate 20 MG Vial IM PRN (20:54)
[2022-12-21] MEDS: Mirtazapine 15 MG Tab PO SCH (21:36)
[2022-12-21] MEDS: hydrOXYzine HCl 25 MG Tab PO SCH (21:36)
[2022-12-21] MEDS: Melatonin 3 MG Tab PO SCH (21:36)
[2022-12-21] MEDS: Check NICOTINE Patch TRDERM SCH (21:42)
[2022-12-22] MEDS: LORazepam 2 MG/ML SDV IV PRN ×2 (00:30→04:40)
[2022-12-22] MEDS: Pantoprazole 40 MG Tab.CR PO SCH (06:21)
[2022-12-22] MEDS: Aspirin 81 MG Tab.EC PO SCH (08:28)
[2022-12-22] MEDS: Folic Acid 1 MG Tab PO SCH (08:28)
[2022-12-22] MEDS: Clopidogrel 75 MG Tab PO SCH (08:29)
[2022-12-22] MEDS: Isosorbide Mononitrate 30 MG Tab.ER PO SCH (08:29)
[2022-12-22] MEDS: Thiamine 100 MG Tab PO SCH (08:29)
[2022-12-22] MEDS: Nicotine 21 MG/24 Hr Patch TRDERM SCH (08:30)
[2022-12-22] MEDS: Carvedilol 3.125 MG Tab PO SCH ×2 (08:30→17:13)
[2022-12-22] MEDS: Multivitamin Tab PO SCH (08:32)
[2022-12-22] MEDS ORDERED: QUEtiapine 25 MG Tab PO ONE (11:00)
[2022-12-22 12:20] LABS: HEMATOCRIT 27.5 % (40.0-54.0); HEMOGLOBIN 9.2 g/dL (14.0-18.0); MEAN CORPUSCULAR HGB CONC 33.5 g/dL (33.0-35.0); MEAN CORPUSCULAR VOLUME 104.6 fL (80-100); PLATELET COUNT,PLT 251 10^3/uL (150-450); RED BLOOD CELL COUNT 2.63 10^6/uL (4.6-6.2); WHITE BLOOD CELL COUNT,WBC 9.3 10^3/uL (5.0-10.0)
[2022-12-22 12:24] LABS: BASOPHILS PERCENT AUTO 0.2 % (0.0-1.0); EOSINOPHILS PERCENT AUTO 2.9 % (1.0-3.0); LYMPHOCYTES PERCENT AUTO 18.6 % (20.5-50.1); MONOCYTES PERCENT AUTO 11.2 % (2-8); NEUTROPHILS PERCENT AUTO 67.1 % (42.2-75.2)
[2022-12-22 12:42] LABS: ALBUMIN 2.3 g/dL (3.4-5.0); BILIRUBIN TOTAL 0.5 mg/dL (0.2-1.0); BUN/CREATININE RATIO 9.3 (No establ ref range); CALCIUM 8.2 mg/dL (8.5-10.1); CREATININE 0.86 mg/dL (0.70-1.30); EST CRCL DRUG DOSING (CG) 83.35 mL/min; MAGNESIUM 1.9 mg/dL (1.8-2.4); PROTEIN TOTAL,TP 5.7 g/dL (6.4-8.2)
[2022-12-22 12:50] LABS: A/G RATIO 0.68
[2022-12-22 13:36] LABS: BAND PERCENT MAN 2 %; EOSINOPHILS PERCENT MAN 1 % (1-3); GIANT PLATELETS OCCASIONAL; LYMPHOCYTES PERCENT MAN 20 % (20-50); MONOCYTES PERCENT MAN 3 % (2-8); SEG NEUTROPHILS PERCENT MAN 74 % (42-75)
[2022-12-22] MEDS: atorvaSTATin 20 MG Tab PO SCH (21:23)
[2022-12-22] MEDS: Melatonin 3 MG Tab PO SCH (21:23)
[2022-12-22] MEDS: Tamsulosin 0.4 MG Cap.ER PO SCH (21:24)
[2022-12-22] MEDS: hydrOXYzine HCl 25 MG Tab PO SCH (21:24)
[2022-12-22] MEDS: Mirtazapine 15 MG Tab PO SCH (21:24)
[2022-12-22] MEDS: QUEtiapine 25 MG Tab PO SCH (21:24)
[2022-12-22] MEDS: Check NICOTINE Patch TRDERM SCH (21:27)
[2022-12-22] MEDS: Latanoprost 0.005% Ophth Soln 2.5 ML Bottle EYEBOTH SCH (21:28)
[2022-12-23] MEDS: Pantoprazole 40 MG Tab.CR PO SCH (06:01)
[2022-12-23] MEDS: Clopidogrel 75 MG Tab PO SCH (08:24)
[2022-12-23] MEDS: QUEtiapine 25 MG Tab PO SCH ×2 (08:25→21:17)
[2022-12-23] MEDS: Isosorbide Mononitrate 30 MG Tab.ER PO SCH (08:25)
[2022-12-23] MEDS: Carvedilol 3.125 MG Tab PO SCH ×2 (08:26→17:12)
[2022-12-23] MEDS: Aspirin 81 MG Tab.EC PO SCH (08:26)
[2022-12-23] MEDS: Nicotine 21 MG/24 Hr Patch TRDERM SCH (08:26)
[2022-12-23] MEDS: Multivitamin Tab PO SCH (08:26)
[2022-12-23] MEDS: Thiamine 100 MG Tab PO SCH (08:26)
[2022-12-23] MEDS: Melatonin 3 MG Tab PO SCH (21:16)
[2022-12-23] MEDS: Polyvinyl Alcohol 1.4% Ophth Soln 15 ML Bottle EYEBOTH PRN (21:16)
[2022-12-23] MEDS: atorvaSTATin 20 MG Tab PO SCH (21:17)
[2022-12-23] MEDS: Tamsulosin 0.4 MG Cap.ER PO SCH (21:18)
[2022-12-23] MEDS: Ketorolac 30 MG/ML SDV IVPUSH PRN (21:18)
[2022-12-23] MEDS: Latanoprost 0.005% Ophth Soln 2.5 ML Bottle EYEBOTH SCH (21:20)
[2022-12-23] MEDS: Sodium Chloride 0.9% 10 ML Syringe FLUSH PRN (21:23)
[2022-12-23] MEDS: Check NICOTINE Patch TRDERM SCH (21:27)
[2022-12-24] MEDS: Pantoprazole 40 MG Tab.CR PO SCH (05:21)
[2022-12-24] MEDS: Acetaminophen 500 MG Tab PO PRN ×2 (07:29→20:36)
[2022-12-24] MEDS: Polyethylene Glycol 3350 Powder 17 GM Packet PO PRN (07:30)
[2022-12-24] MEDS: Carvedilol 3.125 MG Tab PO SCH ×2 (07:30→17:06)
[2022-12-24] MEDS: Multivitamin Tab PO SCH (08:09)
[2022-12-24] MEDS: Isosorbide Mononitrate 30 MG Tab.ER PO SCH (08:09)
[2022-12-24] MEDS: Clopidogrel 75 MG Tab PO SCH (08:09)
[2022-12-24] MEDS: QUEtiapine 25 MG Tab PO SCH ×2 (08:10→20:34)
[2022-12-24] MEDS: Thiamine 100 MG Tab PO SCH (08:10)
[2022-12-24] MEDS: Aspirin 81 MG Tab.EC PO SCH (08:10)
[2022-12-24] MEDS: Nicotine 21 MG/24 Hr Patch TRDERM SCH (08:11)
[2022-12-24] MEDS: Polyvinyl Alcohol 1.4% Ophth Soln 15 ML Bottle EYEBOTH PRN (12:18)
[2022-12-24] MEDS: Melatonin 3 MG Tab PO SCH (20:34)
[2022-12-24] MEDS: Tamsulosin 0.4 MG Cap.ER PO SCH (20:34)
[2022-12-24] MEDS: atorvaSTATin 20 MG Tab PO SCH (20:35)
[2022-12-24] MEDS: Check NICOTINE Patch TRDERM SCH (20:35)
[2022-12-24] MEDS: Latanoprost 0.005% Ophth Soln 2.5 ML Bottle EYEBOTH SCH (20:36)
[2022-12-24] MEDS ORDERED: hydrOXYzine HCl 25 MG Tab PO SCH (21:00)
[2022-12-24] MEDS ORDERED: Mirtazapine 15 MG Tab PO SCH (21:00)
[2022-12-25] MEDS: Pantoprazole 40 MG Tab.CR PO SCH (05:12)
[2022-12-25 06:37] LABS: BASOPHILS PERCENT AUTO 0.3 % (0.0-1.0); EOSINOPHILS PERCENT AUTO 4.2 % (1.0-3.0); HEMATOCRIT 28.9 % (40.0-54.0); HEMOGLOBIN 9.5 g/dL (14.0-18.0); LYMPHOCYTES PERCENT AUTO 32.8 % (20.5-50.1); MEAN CORPUSCULAR HEMOGLOBIN 34.3 pg (27.0-34.0); MEAN CORPUSCULAR HGB CONC 32.9 g/dL (33.0-35.0); MEAN CORPUSCULAR VOLUME 104.3 fL (80-100); MONOCYTES PERCENT AUTO 15.9 % (2-8); NEUTROPHILS PERCENT AUTO 46.8 % (42.2-75.2); PLATELET COUNT,PLT 364 10^3/uL (150-450); RED BLOOD CELL COUNT 2.77 10^6/uL (4.6-6.2); WHITE BLOOD CELL COUNT,WBC 6.7 10^3/uL (5.0-10.0)
[2022-12-25 06:57] LABS: ANION GAP 11.2 mEq/L (7-13); BLOOD UREA NITROGEN,BUN 11 mg/dL (7-18); BUN/CREATININE RATIO 12.4 (No establ ref range); CALCIUM 8.2 mg/dL (8.5-10.1); CARBON DIOXIDE,CO2 27 mmol/L (21-32); CHLORIDE,CL 107 mmol/L (98-107); CREATININE 0.89 mg/dL (0.70-1.30); EST CRCL DRUG DOSING (CG) 80.54 mL/min; GLUCOSE RANDOM 110 mg/dL (70-99); POTASSIUM,K 4.2 mmol/L (3.5-5.1); PROTEIN TOTAL,TP 5.9 g/dL (6.4-8.2); SODIUM,NA 141 mmol/L (136-145)
[2022-12-25 06:58] LABS: ALANINE AMINOTRANSFERASE,ALT 20 U/L (16-63); ALBUMIN 2.5 g/dL (3.4-5.0); ALKALINE PHOSPHATASE 89 U/L (46-116); ASPARTATE AMNIOTRANSFERASE,AST 17 U/L (15-37); BILIRUBIN TOTAL 0.4 mg/dL (0.2-1.0)
[2022-12-25 06:59] LABS: A/G RATIO 0.74; C-REACTIVE PROTEIN < 0.2 mg/dL (0.0-0.9); ESTIMATED GFR 94 mL/min (>=60)
[2022-12-25] MEDS: Acetaminophen 500 MG Tab PO PRN (07:33)
[2022-12-25] MEDS: QUEtiapine 25 MG Tab PO SCH (07:34)
[2022-12-25] MEDS: Polyethylene Glycol 3350 Powder 17 GM Packet PO PRN (07:41)
[2022-12-25] MEDS: Carvedilol 3.125 MG Tab PO SCH (07:42)
[2022-12-25] MEDS: Isosorbide Mononitrate 30 MG Tab.ER PO SCH (08:53)
[2022-12-25] MEDS: Thiamine 100 MG Tab PO SCH (08:54)
[2022-12-25] MEDS: Aspirin 81 MG Tab.EC PO SCH (08:54)
[2022-12-25] MEDS: Multivitamin Tab PO SCH (08:54)
[2022-12-25] MEDS: Clopidogrel 75 MG Tab PO SCH (08:54)
[2022-12-25] MEDS: Nicotine 21 MG/24 Hr Patch TRDERM SCH (08:55)
== END 2022-12-25 09:10 | disposition other institution (70) | DRG 683 ==
LOC: DL.ED 10:40 → DL.MS 13:46 → DL.ED 14:15 → UNDOADMIN 14:59 → DL.MS 14:59
PROVIDERS: ADMIT Internal Medicine; ATTEND Internal Medicine
PROC: 0HQ0XZZ Repair Scalp Skin, External Approach (ICD-10-PCS; principal; 2022-12-19)
DX: N17.9 Acute kidney failure, unspecified (principal); E87.20 Acidosis, unspecified; F10.139 Alcohol abuse with withdrawal, unspecified; R44.3 Hallucinations, unspecified; S01.01XA Laceration without foreign body of scalp, initial encounter; E78.5 Hyperlipidemia, unspecified; I25.10 Atherosclerotic heart disease of native coronary artery without angina pectoris; S40.011A Contusion of right shoulder, initial encounter; I50.9 Heart failure, unspecified; N40.0 Benign prostatic hyperplasia without lower urinary tract symptoms; H40.9 Unspecified glaucoma; S01.91XA Laceration without foreign body of unspecified part of head, initial encounter; D50.9 Iron deficiency anemia, unspecified; R73.9 Hyperglycemia, unspecified; E83.42 Hypomagnesemia; F63.9 Impulse disorder, unspecified; F32.A Depression, unspecified; S50.02XA Contusion of left elbow, initial encounter; S50.01XA Contusion of right elbow, initial encounter; S60.211A Contusion of right wrist, initial encounter; I25.2 Old myocardial infarction; Z79.82 Long term (current) use of aspirin; Z79.02 Long term (current) use of antithrombotics/antiplatelets; S80.02XA Contusion of left knee, initial encounter; Z88.5 Allergy status to narcotic agent; S80.01XA Contusion of right knee, initial encounter; I10 Essential (primary) hypertension; E78.00 Pure hypercholesterolemia, unspecified; F17.210 Nicotine dependence, cigarettes, uncomplicated; Z79.899 Other long term (current) drug therapy; Z95.5 Presence of coronary angioplasty implant and graft; W18.30XA Fall on same level, unspecified, initial encounter
CPT/HCPCS: 12001; 36415; 70450; 71045; 72125; 73610-LT; 80053; 80305-QW; 80307; 81001; 82550; 83605; 83735; 84443; 84484; 85025; 85610; 86140; 87040; 87070; 87205; 93005; 93010; 96361; 96365; 96375; 99222; 99232; 99238; 99284; 99285-25; A9270-GY; C1758; J1170; J1885; J2060; J2405; J3411; J3475; J3490; J7030; J7120

== ENCOUNTER 2023-02-25 19:51 | Emergency (ER) | payer MEDICARE, MEDICAID ==
[2023-02-25] MEDS ORDERED: Sodium Chloride 0.9% 1,000 ML IV ONE (19:52)
[2023-02-25] MEDS ORDERED: LORazepam 2 MG/ML SDV IVPUSH ONE ×2 (19:52→21:10)
[2023-02-25] MEDS ORDERED: Ciprofloxacin 0.3% Ophth Soln 5 ML Bottle EYEBOTH ONE (19:52)
[2023-02-25] MEDS ORDERED: Aspirin 81 MG Tab.Chew PO ONE (20:07)
[2023-02-25 20:33] LABS: BASOPHILS PERCENT AUTO 0.1 % (0.0-1.0); HEMATOCRIT 43.9 % (40.0-54.0); HEMOGLOBIN 14.9 g/dL (14.0-18.0); LYMPHOCYTES PERCENT AUTO 23.7 % (20.5-50.1); MEAN CORPUSCULAR HEMOGLOBIN 32.2 pg (27.0-34.0); MEAN CORPUSCULAR HGB CONC 33.9 g/dL (33.0-35.0); MEAN CORPUSCULAR VOLUME 94.8 fL (80-100); MONOCYTES PERCENT AUTO 11.1 % (2-8); NEUTROPHILS PERCENT AUTO 65.1 % (42.2-75.2); PLATELET COUNT,PLT 140 10^3/uL (150-450); RED BLOOD CELL COUNT 4.63 10^6/uL (4.6-6.2); WHITE BLOOD CELL COUNT,WBC 10.7 10^3/uL (5.0-10.0)
[2023-02-25 20:55] LABS: A/G RATIO 0.9; ALANINE AMINOTRANSFERASE,ALT 23 U/L (16-63); ALBUMIN 3.7 g/dL (3.4-5.0); ALKALINE PHOSPHATASE 129 U/L (46-116); ANION GAP 15.9 mEq/L (7-13); ASPARTATE AMNIOTRANSFERASE,AST 29 U/L (15-37); BILIRUBIN TOTAL 1.1 mg/dL (0.2-1.0); BLOOD UREA NITROGEN,BUN 11 mg/dL (7-18); BUN/CREATININE RATIO 11.5 (No establ ref range); CALCIUM 9.1 mg/dL (8.5-10.1); CARBON DIOXIDE,CO2 29 mmol/L (21-32); CHLORIDE,CL 95 mmol/L (98-107); CREATININE 0.96 mg/dL (0.70-1.30); ETHANOL BLOOD MEDICAL 154 mg/dL (0); GLUCOSE RANDOM 119 mg/dL (70-99); POTASSIUM,K 2.9 mmol/L (3.5-5.1); PROTEIN TOTAL,TP 7.8 g/dL (6.4-8.2); SODIUM,NA 137 mmol/L (136-145)
[2023-02-25 20:56] LABS: ESTIMATED GFR 87 mL/min (>=60)
[2023-02-25 21:06] LABS: AMPHETAMINES,URINE NEGATIVE (NEGATIVE); BARBITURATES,URINE NEGATIVE (NEGATIVE); BENZODIAZEPINE,URINE NEGATIVE (NEGATIVE); MDMA (ECSTASY), URINE NEGATIVE (NEGATIVE); METHADONE,URINE NEGATIVE (NEGATIVE); METHAMPHETAMINES,URINE NEGATIVE (NEGATIVE); OPIATES,URINE NEGATIVE (NEGATIVE); OXYCODONE,URINE NEGATIVE (NEGATIVE); PHENCYCLIDINE,URINE NEGATIVE (NEGATIVE); TCA,URINE NEGATIVE (NEGATIVE)
[2023-02-25] MEDS ORDERED: Potassium Chloride 10 MEQ Tab.ER PO ONE (21:13)
[2023-02-25] MEDS ORDERED: Magnesium Oxide 400 MG Tab PO STA (22:42)
== END 2023-02-26 00:03 | disposition home or self-care (01) ==
LOC: DL.ED 19:51
DX: R07.89 Other chest pain (principal); E87.6 Hypokalemia; E83.42 Hypomagnesemia; Z88.5 Allergy status to narcotic agent; Z79.82 Long term (current) use of aspirin; Z79.899 Other long term (current) drug therapy
CPT/HCPCS: 36415; 71045; 80053; 80305; 80307; 83735; 84484; 85025; 93005; 96361; 96374; 96376; 99291; A9270; J2060; J7030; 93010

== ENCOUNTER 2023-04-03 20:09 | Emergency (ER) | payer MEDICARE, MEDICAID ==
[2023-04-03 20:27] LABS: HEMATOCRIT 43.5 % (40.0-54.0); HEMOGLOBIN 14.8 g/dL (14.0-18.0); MEAN CORPUSCULAR HEMOGLOBIN 33.5 pg (27.0-34.0); MEAN CORPUSCULAR VOLUME 98.4 fL (80-100); PLATELET COUNT,PLT 154 10^3/uL (150-450); RED BLOOD CELL COUNT 4.42 10^6/uL (4.6-6.2); WHITE BLOOD CELL COUNT,WBC 6.6 10^3/uL (5.0-10.0)
[2023-04-03 20:30] LABS: BASOPHILS PERCENT AUTO 0.3 % (0.0-1.0); EOSINOPHILS PERCENT AUTO 0.6 % (1.0-3.0); LYMPHOCYTES PERCENT AUTO 37.9 % (20.5-50.1); MONOCYTES PERCENT AUTO 15.3 % (2-8); NEUTROPHILS PERCENT AUTO 45.9 % (42.2-75.2)
[2023-04-03 20:45] LABS: BAND PERCENT MAN 13 %; EOSINOPHILS PERCENT MAN 1 % (1-3); INR 0.9 (0.9-1.2); LYMPHOCYTES PERCENT MAN 28 % (20-50); MONOCYTES PERCENT MAN 8 % (2-8); PROTHROMBIN TIME 9.3 SEC (9.0-12.0); SEG NEUTROPHILS PERCENT MAN 50 % (42-75)
[2023-04-03 20:47] LABS: B-TYPE NATRIURETIC PEPTIDE,BNP 36 pg/ml (0-100)
[2023-04-03 20:50] LABS: A/G RATIO 1.1; ALANINE AMINOTRANSFERASE,ALT 32 U/L (16-63); ALBUMIN 3.5 g/dL (3.4-5.0); ALKALINE PHOSPHATASE 92 U/L (46-116); ANION GAP 12.8 mEq/L (7-13); ASPARTATE AMNIOTRANSFERASE,AST 35 U/L (15-37); BILIRUBIN TOTAL 0.5 mg/dL (0.2-1.0); BLOOD UREA NITROGEN,BUN 7 mg/dL (7-18); CALCIUM 8.1 mg/dL (8.5-10.1); CARBON DIOXIDE,CO2 32 mmol/L (21-32); CHLORIDE,CL 101 mmol/L (98-107); CREATININE 0.87 mg/dL (0.70-1.30); EST CRCL DRUG DOSING (CG) 82.39 mL/min; ETHANOL BLOOD MEDICAL 246 mg/dL (0); GLUCOSE RANDOM 94 mg/dL (70-99); LACTIC ACID 1.7 mmol/L (0.4-2.0); LIPASE 77 U/L (73-393); POTASSIUM,K 3.8 mmol/L (3.5-5.1); PROTEIN TOTAL,TP 6.8 g/dL (6.4-8.2); SODIUM,NA 142 mmol/L (136-145)
[2023-04-03 20:51] LABS: C-REACTIVE PROTEIN < 0.2 mg/dL (0.0-0.9); ESTIMATED GFR 95 mL/min (>=60)
== END 2023-04-03 20:45 | disposition left against medical advice (07) ==
LOC: DL.ED 20:09
DX: R07.9 Chest pain, unspecified (principal); Z88.5 Allergy status to narcotic agent; F17.210 Nicotine dependence, cigarettes, uncomplicated; Z79.899 Other long term (current) drug therapy
CPT/HCPCS: 36415; 71045; 80053; 80307; 83605; 83690; 83880; 84484; 85025; 85379; 85610; 85730; 86140; 93005; 99281; 99284

== ENCOUNTER → 2023-05-02 | Day surgery (SDC) | payer MEDICARE, MEDICAID ==
[~2023-05-02] MED LIST: Acetaminophen 325 MG Tab PO PRN; Acetaminophen/Codeine 300-30 MG Tab PO PRN; Cataract Ophth Solution EYELF ONE; Moxifloxacin 0.5% Ophth Soln 3 ML Bottle EYELF ONE; Ondansetron 4 MG/2 ML SDV IVPUSH PRN; Phenylephrine 10% Ophth Soln 5 ML Bot EYELF PRN; Povidone-Iodine 5% Sterile Ophth Soln 30 ML Bottle EYELF ONE; Proparacaine 0.5% Ophth Soln 15 ML Bottle EYELF ONE; Sodium Chloride 0.9% 10 ML Syringe FLUSH PRN; Timolol Maleate 0.5% Ophth Soln 5 ML Bottle EYELF ONE; Tropicamide 1% Ophth Soln 15 ML Bottle EYELF ONE
== END ==
LOC: DL.SDS 10:24
PROVIDERS: ATTEND Ophthalmology
DX: H25.813 Combined forms of age-related cataract, bilateral (principal); H40.9 Unspecified glaucoma; Z53.09 Procedure and treatment not carried out because of other contraindication; E78.00 Pure hypercholesterolemia, unspecified; I10 Essential (primary) hypertension; F41.9 Anxiety disorder, unspecified; F32.A Depression, unspecified; G89.29 Other chronic pain; I25.10 Atherosclerotic heart disease of native coronary artery without angina pectoris; N40.0 Benign prostatic hyperplasia without lower urinary tract symptoms; I25.2 Old myocardial infarction; F17.210 Nicotine dependence, cigarettes, uncomplicated; Z79.899 Other long term (current) drug therapy; Z88.5 Allergy status to narcotic agent; Z79.02 Long term (current) use of antithrombotics/antiplatelets; Z79.82 Long term (current) use of aspirin